=== PATIENT | male | born 1990 | race Native Hawaiian/Other Pacific Islander ===

== ENCOUNTER 2017-03-04 09:45 | Emergency (ER) | payer OTHER ==
[~2017-03-04] VITALS: Ht 180.3 cm; Wt 147.7 kg
[2017-03-04 09:50] VITALS: BP 150/106; PULSE 73; RESP 15; O2SAT 99
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
[2017-03-04 11:40] VITALS: BP 150/106; PULSE 73; RESP 18; O2SAT 99
== END 2017-03-04 11:42 | disposition home or self-care (01) ==
LOC: SED 09:45
DX: S00.83XA Contusion of other part of head, initial encounter (principal); V43.62XA Car passenger injured in collision with other type car in traffic accident, initial encounter; Y93.89 Activity, other specified; Y92.410 Unspecified street and highway as the place of occurrence of the external cause; Y99.8 Other external cause status